=== PATIENT | female | born 1985 | race Caucasian/White ===

== ENCOUNTER → 2016-05-05 | Emergency (ER) | payer OTHER ==
--- NOTE | 2016-05-05 16:06 | ED NURSING NOTES ---
Clinical Report - Nurses [facility] [address] [place] [address] 05/05/2016 15:18 Patient: FIONA JANE TRIAGE Triage time 15:35 May 05 2016. Acuity: LEVEL 3. Chief Complaint: HEADACHE and (neck pain, nausea). Alert. No acute distress. --15:39 Katarina Cisneros R.N. 15:35 05/05/16. BP: 140/80. HR: 110. RR: 16. O2 saturation: 100%. Temp: 99 F. Pain level now: 04/17. --15:39 Katarina Cisneros R.N. Weight: 54.4 kg stated. Height/Length: 62 inches Per Patient. BMI: 22. --16:20 Katarina Cisneros R.N. Medications NuvaRing Vaginal. --15:37 Katarina Cisneros R.N. Multivitamins Oral. --15:37 Katarina Cisneros R.N. Allergies No Known Drug Allergy. --15:37 Katarina Cisneros R.N. History Arrived by private vehicle. This started yesterday. She has had nausea. PAST MEDICAL HX: Immunizations: up-to-date. Last normal menstrual period- Feb 2016. Sexual history - sexually active. Uses control pills. SOCIAL HX: Never smoker. Occasional alcohol use. No drug use. No infectious disease exposure. FALL RISK ASSESSMENT: Fall risk assessment completed. No fall risk identified. NUTRITIONAL RISK ASSESSMENT: The nutritional risk assessment revealed no deficiencies. FUNCTIONAL ASSESSMENT: Functional assessment: no impairments noted. LEARNING NEEDS ASSESSMENT: The learning needs assessment revealed no barriers. SKIN INTEGRITY ASSESSMENT: Skin integrity risk assessment completed. No skin integrity risk identified. --15:39 Katarina Cisneros R.N. ADDITIONAL SURGERIES: Shoulder Surgery. --15:38 Katarina Cisneros R.N. Interventions ID band on patient. To room. --15:39 Katarina Cisneros R.N. PHYSICAL ASSESSMENT GENERAL / NEURO / PSYCH: Alert. Oriented X 4. Appears in no acute distress. HEENT: No facial asymmetry noted. RESPIRATORY: Respirations not labored. CVS: Capillary refill less than 2 seconds. GI / : Abdomen nontender. SKIN: Skin is warm and dry. --15:40 Katarina Cisneros R.N. DISPOSITION / DISCHARGE Condition at departure: unchanged. No learning barriers present. Reviewed referral to a primary care physician. Written instructions provided in Nepali. The patient was discharged home. She left the Emergency Department ambulatory and via private vehicle. Patient driving. FALL RISK ASSESSMENT: Fall risk assessment completed. No fall risk identified. --16:15 Katarina Cisneros R.N. 16:12 05/05/16. BP: 120/70. HR: 62. O2 saturation: 100%. Pain level now: 04/17. --16:15 Katarina Cisneros R.N. Locked/Released at 05/05/2016 16:21 by Katarina Cisneros R.N.
--- NOTE | 2016-05-05 16:06 | ED NURSING NOTES ---
Clinical Report - Nurses [facility] [address] [place] [address] 05/05/2016 15:18 Patient: FIONA JANE TRIAGE Triage time 15:35 May 05 2016. Acuity: LEVEL 3. Chief Complaint: HEADACHE and (neck pain, nausea). Alert. No acute distress. --15:39 Katarina Cisneros R.N. 15:35 05/05/16. BP: 140/80. HR: 110. RR: 16. O2 saturation: 100%. Temp: 99 F. Pain level now: 04/17. --15:39 Katarina Cisneros R.N. Weight: 54.4 kg stated. Height/Length: 62 inches Per Patient. BMI: 22. --16:20 Katarina Cisneros R.N. Medications NuvaRing Vaginal. --15:37 Katarina Cisneros R.N. Multivitamins Oral. --15:37 Katarina Cisneros R.N. Allergies No Known Drug Allergy. --15:37 Katarina Cisneros R.N. History Arrived by private vehicle. This started yesterday. She has had nausea. PAST MEDICAL HX: Immunizations: up-to-date. Last normal menstrual period- Feb 2016. Sexual history - sexually active. Uses control pills. SOCIAL HX: Never smoker. Occasional alcohol use. No drug use. No infectious disease exposure. FALL RISK ASSESSMENT: Fall risk assessment completed. No fall risk identified. NUTRITIONAL RISK ASSESSMENT: The nutritional risk assessment revealed no deficiencies. FUNCTIONAL ASSESSMENT: Functional assessment: no impairments noted. LEARNING NEEDS ASSESSMENT: The learning needs assessment revealed no barriers. SKIN INTEGRITY ASSESSMENT: Skin integrity risk assessment completed. No skin integrity risk identified. --15:39 Katarina Cisneros R.N. ADDITIONAL SURGERIES: Shoulder Surgery. --15:38 Katarina Cisneros R.N. Interventions ID band on patient. To room. --15:39 Katarina Cisneros R.N. PHYSICAL ASSESSMENT GENERAL / NEURO / PSYCH: Alert. Oriented X 4. Appears in no acute distress. HEENT: No facial asymmetry noted. RESPIRATORY: Respirations not labored. CVS: Capillary refill less than 2 seconds. GI / : Abdomen nontender. SKIN: Skin is warm and dry. --15:40 Katarina Cisneros R.N. DISPOSITION / DISCHARGE Condition at departure: unchanged. No learning barriers present. Reviewed referral to a primary care physician. Written instructions provided in Sami. The patient was discharged home. She left the Emergency Department ambulatory and via private vehicle. Patient driving. FALL RISK ASSESSMENT: Fall risk assessment completed. No fall risk identified. --16:15 Katarina Cisneros R.N. 16:12 05/05/16. BP: 120/70. HR: 62. O2 saturation: 100%. Pain level now: 04/17. --16:15 Katarina Cisneros R.N. Locked/Released at 05/05/2016 16:21 by Katarina Cisneros R.N.
--- NOTE | 2016-05-05 16:06 | ED CLINICAL REPORT ---
Clinical Report - Physicians/Mid Levels [facility] [address] [place] [address] 05/05/2016 15:18 Patient: FIONA JANE Time Seen: 15:39; initial patient contact. Arrived- By private vehicle. Historian- patient. HISTORY OF PRESENT ILLNESS Is still present. Chief Complaint: HEADACHE. This started yesterday. It was gradual in onset and has been constant. Onset during light activity. Located in the frontal and occipital region and has had posterior neck pain. At its maximum, severity described as moderate. When seen in the E.D., severity described as moderate. Modifying factors: worsened by moving head; relieved by nothing. No preceding symptoms, blurred vision, photophobia, associated nausea or numbness. No weakness or vomiting. Similar symptoms previously: Several times. Recent medical care: Not recently seen/assessed. REVIEW OF SYSTEMS No fever, head injury, abdominal pain or pain with urination. She has had diarrhea. All systems otherwise negative, except as recorded above. PAST HISTORY SURGERIES: Shoulder Surgery. Medications: Multivitamins Oral. NuvaRing Vaginal. Allergies: No Known Drug Allergy. SOCIAL HISTORY Never smoker. Occasional alcohol use. No drug use. ADDITIONAL NOTES The nursing notes have been reviewed with agreement regarding the chief complaint, PMH and patient medications and allergies. PHYSICAL EXAM Vital Signs: 05/05/2016 15:35 BP: 140/80. HR: 110. RR: 16. O2 saturation: 100%. Temp: 99 F. Pain level now: 2/10. Have been reviewed. Hypertensive. Tachycardic. Respiratory rate normal. Temperature normal. Oxygen saturation normal. Appearance: Alert. No acute distress. Eyes: Pupils equal, round and reactive to light. Eyes normal inspection. No photophobia. ENT: Pharynx normal. Neck: Mild acute decrease in ROM secondary to pain. Mild pain in the entire posterior neck upon turning the head to the right and turning the head to the left. Moderate muscle spasm of the right and left posterior neck. Neck supple. Mild soft tissue tenderness in the right upper, mid and lower neck area and left upper, mid and lower neck area. No neck stiffness or nuchal rigidity. Negative Brudzinski's sign and Kernig's sign. No vertebral tenderness. No vertebral step-off. CVS: Normal heart rate and rhythm. Heart sounds normal. Respiratory: No respiratory distress. Breath sounds normal. Skin: Normal skin color. No rash. Neuro: Oriented X 3. Alert. Mood/affect normal. Speech normal. PROGRESS AND PROCEDURES Disposition: Discharged home in good condition. Condition: good. CLINICAL IMPRESSION Episodic tension-type headache poorly controlled. INSTRUCTIONS Your Current Medications: CONTINUE TAKING THE FOLLOWING MEDICATIONS: Multivitamins Oral. NuvaRing Vaginal. Follow-up: Follow up with your doctor in about two days. Call for an appointment. Screening today revealed the patient's blood pressure to be in the hypertensive range. The patient should follow up with a primary care provider for blood pressure management. (Electronically signed by Peterson Herrera Dr. 05/05/2016 22:48)
--- NOTE | 2016-05-05 22:48 | ED MAR SUMMARY ---
..... Medication Administration Record [facility] [address] [place] [place], [place] [id number] Patient: FIONA JANE Visit ID: [id number] 30y, F Weight: 54.4 kg Height/Length: 62 in BMI: 22 ALLERGIES: No Known Drug Allergy
--- NOTE | 2016-05-05 22:48 | ED MED RECONCILIATION SUMMARY ---
Patient: FIONA JANE Medication Reconciliation Report [facility] VisitID: [id number] [address] [place] [address] 30y, F Registration Date/Time: 05/05/2016 Weight: 54.4 kg Height/Length: 62 in. BMI: 22.0 ALLERGIES: No Known Drug Allergy The patient's Home Medications are listed below: CONTINUE TAKING THE FOLLOWING MEDICATIONS: Multivitamins Oral NuvaRing Vaginal The source(s) of the original Home Medication information: Not obtained. The following Medications were given to the patient in the Emergency Department: None. The following Medications were prescribed to the patient: None.
--- NOTE | 2016-05-05 22:48 | ED MAR SUMMARY ---
..... Medication Administration Record [facility] [address] [place] [place] [id number] Patient: FIONA JANE Visit ID: [id number] 30y, F Weight: 54.4 kg Height/Length: 62 in BMI: 22 ALLERGIES: No Known Drug Allergy
--- NOTE | 2016-05-05 22:48 | ED MED RECONCILIATION SUMMARY ---
Patient: FIONA JANE Medication Reconciliation Report [facility] VisitID: [id number] [address] [place] [place] [address] 30y, F Registration Date/Time: 05/05/2016 Weight: 54.4 kg Height/Length: 62 in. BMI: 22.0 ALLERGIES: No Known Drug Allergy The patient's Home Medications are listed below: CONTINUE TAKING THE FOLLOWING MEDICATIONS: Multivitamins Oral NuvaRing Vaginal The source(s) of the original Home Medication information: Not obtained. The following Medications were given to the patient in the Emergency Department: None. The following Medications were prescribed to the patient: None.
--- NOTE | 2016-05-05 22:48 | ED DISCHARGE INSTRUCTIONS ---
Patient: FIONA JANE General Instructions [facility] VisitID: [id number] [place] [address] 30y, F Registration Date/Time: 05/05/2016 Episodic tension-type headache poorly controlled. INSTRUCTIONS Your Current Medications: CONTINUE TAKING THE FOLLOWING MEDICATIONS: Multivitamins Oral. NuvaRing Vaginal. Follow-up: Follow up with your doctor in about two days. Call for an appointment. Screening today revealed the patient's blood pressure to be in the hypertensive range. The patient should follow up with a primary care provider for blood pressure management. ADDITIONAL INFORMATION Tension Headache Muscle Tension Headache (also called "stress headache") is a very common cause of head pain. Under stress, some people tense the muscles of their shoulder, neck and scalp without knowing it. If this lasts long enough, a headache can occur. These headaches can be very painful and last for hours or even days. Home Care: If you were given pain medicine for this headache, do not drive yourself home. Arrange for a ride, instead. When you get home, try to sleep. You should feel much better when you wake up. Heat to the back of your neck may relieve neck spasm. Drink only clear liquids or eat a very light diet to avoid nausea/vomiting until symptoms improve. Preventing Future Headaches Identify the sources of stress in your life. These may not be obvious! Learn new ways to handle your stress, such as regular exercise, biofeedback, self-hypnosis and meditation. For more information about this, consult your doctor or go to a local bookstore and review the many books and tapes on this subject. At the first sign of a tension headache, take time out if possible. Remove yourself from the stressful situation, find a quiet comfortable place to sit or lie down and let yourself relax. Heat and deep massage of the tight areas in the neck and shoulders may help reduce muscle spasm. Medicine, such as ibuprofen (Advil or Motrin) or a prescribed muscle relaxant may be helpful at this point. Follow Up with your doctor if the headache is not better within the next 24 hours. If you have frequent headaches you should discuss a treatment plan with your primary care doctor. Ask if you can have medicine to take at home the next time you get a bad headache. This may avoid the need for a visit to the emergency department in the future. Poorly controlled chronic headaches may require a referral to a neurologist (headache specialist). Get Prompt Medical Attention if any of the following occur: Worsening of your head pain or no improvement within 24 hours Repeated vomiting (unable to keep liquids down) Fever of 100.4F (38C) or higher, or as directed by your healthcare provider Stiff neck Extreme drowsiness, confusion or fainting Dizziness, vertigo (dizziness with spinning sensation) Weakness of an arm or leg or one side of the face Difficulty with speech or vision You have been given the following additional information: Headache, Tension (Electronically signed by Peterson Herrera Dr. 05/05/2016 22:48)
== END ==
LOC: ED SRH 15:14
DX: G44.211 Episodic tension-type headache, intractable (principal)